=== PATIENT | male | born 1945 | race Caucasian/White ===

== ENCOUNTER 2017-12-15 17:38 | Emergency (ER) | payer OTHER, MEDICARE ==
[2017-12-15 18:33] VITALS: BP 128/93
--- NOTE | 2017-12-15 18:59 | UC ---
Eye Complaint HPI - HPI Summary HPI Summary: 72 yo male with left eye d/c and redness x 1 day purulent d/c no pain or photophobia - History of Current Complaint Chief Complaint: UCEye Stated Complaint: R EYE COMPLAINT Time Seen by Provider: 12/15/17 18:46 Hx Obtained From: Patient Onset/Duration: Gradual Onset, Lasting Days Timing: Constant Severity Initially: Mild Severity Currently: Mild Pain Intensity: 1 Pain Scale Used: 0-10 Numeric Location of Injury: Conjunctiva Associated Signs And Symptoms: Positive: Drainage (Purulent) - Risk Factors Penetrating Injury Risk Factor: Negative Globe Rupture Risk Factors: Negative - Allergies/Home Medications Allergies/Adverse Reactions: Allergies Allergy/AdvReac Type Severity Reaction Status Date / Time No Known Allergies Allergy Verified 12/15/17 18:16 Home Medications: Home Medications Aspirin EC Low Dose* [Ecotrin EC Low Dose 81 MG*] 81 mg PO DAILY 12/15/17 [ History Confirmed 12/15/17] Atorvastatin* [Lipitor 80 MG*] 40 mg PO DAILY 12/15/17 [History Confirmed ] Cholecalciferol TAB* [Vitamin D TAB*] 2,000 units PO DAILY 12/15/17 [History Confirmed 12/15/17] Finasteride TAB* [Proscar TAB*] 5 mg PO DAILY 12/15/17 [History Confirmed ] Gabapentin 600 mg PO TID 12/15/17 [History Confirmed 12/15/17] LORazepam [Ativan 0.5 MG TAB] 0.5 mg PO SEE INSTRUCTIONS 12/15/17 [History Confirmed 12/15/17] Lisinopril TAB* [Prinivil TAB 10 MG*] 10 mg PO DAILY 12/15/17 [History Confirmed 12/15/17] Metformin HCl [Fortamet] 1,000 mg PO SEE INSTRUCTIONS 12/15/17 [History Confirmed 12/15/17] [place]-3 Fatty Acids/Fish Oil [Fish Oil 1,000 mg Capsule] 1,000 units PO DAILY [History Confirmed 12/15/17] Potassium Chlor TAB* [Potassium Chlor TAB 20 MEQ*] 20 meq PO TID 12/15/17 [ History Confirmed 12/15/17] [facility] 11/03/17 12/15/17 [History] Sertraline* [Zoloft*] 0 mg PO SEE INSTRUCTIONS 12/15/17 [History Confirmed 12/15] buPROPion TAB* [Wellbutrin TAB*] 100 mg PO BID 12/15/17 [History Confirmed 12/15] glipiZIDE [Glipizide] 10 mg PO BID 12/15/17 [History Confirmed 12/15/17] raNITIdine HCl [Ranitidine HCl] 150 mg PO BID 12/15/17 [History Confirmed ] PMH/Surg Hx/FS Hx/Imm Hx Previously Healthy: Yes - Surgical History Surgical History: Yes Surgery Procedure, Year, and Place: abd. hernia, aortic aneurysm - Social History Alcohol Use: None Substance Use Type: None Smoking Status (MU): Former Smoker - Immunization History Most Recent Tetanus Shot: [facility] Review of Systems Constitutional: Negative Skin: Negative Eyes: Drainage, Eye Redness ENT: Negative Respiratory: Negative Cardiovascular: Negative Gastrointestinal: Negative Genitourinary: Negative Motor: Negative Neurovascular: Negative Musculoskeletal: Negative Neurological: Negative Psychological: Negative Is Patient Immunocompromised?: No All Other Systems Reviewed And Are Negative: Yes Physical Exam Triage Information Reviewed: Yes Appearance: Well-Appearing, No Pain Distress, Well-Nourished Vital Signs: Initial Vital Signs Temp 99.4 F 12/15/17 18:23 Pulse 96 12/15/17 18:23 Resp 20 12/15/17 18:23 BP 128/93 12/15/17 18:23 Pulse Ox 98 12/15/17 18:23 Vital Signs Reviewed: Yes Eyes: Positive: Conjunctiva Clear - R, Conjunctiva Inflamed - L, Discharge - L, Other: - eomi/perrl/lids everted...no fb noted ENT: Positive: Hearing grossly normal. Negative: Nasal congestion, Nasal drainage Dental Exam: Normal Neck: Positive: Supple Respiratory: Positive: Lungs clear, Normal breath sounds Cardiovascular: Positive: RRR, No Murmur Musculoskeletal: Positive: No Edema Neurological: Positive: Alert Psychological Exam: Normal Eye Complaint Course/Dx - Differential Dx/Diagnosis Provider Diagnoses: conjunctivitis (L) Discharge - Discharge Plan Condition: Stable Disposition: HOME Prescriptions: Polymyx/Trimethoprim OPTH* [Polytrim OPHTH*] 1 - 2 drop LEFT EYE QID #1 btl Patient Education Materials: Conjunctivitis (ED) Referrals: Domenico Piña MD [Primary Care Provider] - Additional Instructions: I suggest you also use ZADITOR eye drops (OTC) recheck for eye pain or light sensitivity warm compresses recheck early next week if not completely better
== END 2017-12-15 19:00 | disposition home or self-care (01) ==
LOC: UCCORT 17:38
DX: H10.9 Unspecified conjunctivitis (principal); Z87.891 Personal history of nicotine dependence
CPT/HCPCS: 99212; G0463